=== PATIENT | male | born 1960 | race Caucasian/White ===

== ENCOUNTER → 2017-02-17 | Outpatient (CLI) | payer OTHER | END | disposition home or self-care (01) | LOC: C.CPL 18:07 | PROVIDERS: ATTEND Internal Medicine | DX: R07.9 Chest pain, unspecified (principal) ==

== ENCOUNTER 2017-10-09 12:30 | Emergency (ER) | payer OTHER ==
[~2017-10-09] VITALS: Ht 175.3 cm; Wt 77.0 kg
[2017-10-09] MEDS ORDERED: ONDANSETRON 4MG OD TAB ONE (12:42)
[2017-10-09] MEDS ORDERED: MECLIZINE HCL 25 MG TAB PO ONE (12:42)
[2017-10-09 12:50] VITALS: TEMP 36.7; Ht 175.3 cm; Wt 77.0 kg
[2017-10-09] MEDS ORDERED: SODIUM CHLORIDE 0.9% 1000ML 1,000 ML IV STA (13:04)
[2017-10-09] MEDS ORDERED: SODIUM CHLORIDE 0.9% 1000ML 1,000 ML IV ONE (13:04)
[2017-10-09] MEDS ORDERED: ONDANSETRON INJ 2 MG/ML 2 ML VIAL IV STA (13:24)
[2017-10-09] MEDS ORDERED: LORAZEPAM 2 MG/ML 1 ML VIAL IV STA (13:33)
--- NOTE | 2017-10-09 13:38 | EMERGENCY ROOM VISIT NOTE ---
History Report prepared by Rafa: Cristiane Orr Under the Supervision of: Dr. Ciro Dobson M.D. First contact with patient: 12:53 Chief Complaint: VERTIGO Stated Complaint: VERITGO NAUSEA History of Present Illness The patient is a 56 year old male who presents to the Emergency Room with complaints of persistent dizziness that began suddenly two hours ago. The patient states that he has a history of vertigo in the past 5-7 years ago. He states that he has been worked up, but notes that it was found to be idiopathic. The patient states that when he would experiencing an episode of vertigo he would lie down and wait for it to pass. He states that with his previous episodes he would feel nauseous, but states that today his nausea is much worse, and notes that he vomited several times. The patient states that his symptoms are worsened with movement. He states that his symptoms started with feeling lightheaded, and then noticed the room spinning sensation. The patient states that he then became hot, diaphoretic and clammy. He denies any chest pain, headache or ear ringing. The patient does report some esophageal discomfort after he vomited. He denies any recent illness or recent travel. The patient denies any trouble speaking or swallowing, numbness, or weakness. He denies any active medical problems. The patient states that his symptoms are about the same at this time. He denies any melena or hematochezia. Source of History: patient Onset: two hours ago Position: other (global) Quality: other (dizziness) Timing: other (persistent) Associated Symptoms: + diaphoresis, No headache, No chest pain, No weakness , No numbness Note: Associated Symptoms: lightheadedness, clammy, room spinning sensation Review of Systems See HPI for pertinent positives & negatives. A total of 10 systems reviewed and were otherwise negative. Past Medical & Surgical Medical Problems: (1) No Known Active Medical Problems Old medical records were reviewed. Nurse's notes were reviewed and I agree with. Social History Drug Use: none Marital Status: Housing Status: lives with significant other Current/Historical Medications No Active Prescriptions or Reported Meds Allergies Coded Allergies: No Known Allergies (Unverified , 10/09/17) Physical Exam Vital Signs Date Time Temp Pulse Resp B/P (MAP) Pulse Ox O2 Delivery O2 Flow Rate FiO2 10/09/17 15:53 63 20 125/81 100 Room Air 10/09/17 14:14 69 20 115/77 98 Room Air 10/09/17 12:50 36.7 62 20 119/75 96 Room Air 10/09/17 12:46 63 Physical Exam General: Uncomfortable appearing middle aged male resting with his eyes closed, dizzy with any movement. GCS 15. HEENT: Normal cephalic atraumatic. Pupils are equal round and reactive to light. Extraocular movements are intact. Oropharynx is pink with moist mucous membranes. No swelling of the mouth lips or tongue. Neck: Supple with a midline trachea. No meningeal signs or stiffness, no JVD or bruits. No Stridor. Chest: Clear to auscultation bilaterally. No wheezes or rhonchi. No increased work of breathing. Heart: regular rate and rhythm. Abdomen: Soft nontender, nondistended without rebound guarding or rigidity. Extremities: No cyanosis clubbing or edema. No calf tenderness or assymetry Spine/Back. Non tender to palpation. No CVA tenderness Skin: Good turgor without rashes. Neurologic exam: Cranial nerves two through 12 are intact. Motor and sensation are intact and symmetrical throughout. No tremor, heel to toe intact. Medical Decision & Procedures ER Provider Diagnostic Interpretation: Radiology results as stated below per my review and radiologist interpretation: HEAD WITHOUT CONTRAST (CT) CLINICAL HISTORY: 56 years-old Male with vertigo. Acute vertigo with dizziness and nausea TECHNIQUE: Multiple axial CT images of the head were obtained without contrast. A dose lowering technique was utilized adhering to the principles of ALARA. CT DOSE: 638.56 mGycm COMPARISON: None. FINDINGS: No acute intracranial hemorrhage, midline shift, mass, territorial ischemia or abnormal extra-axial collection. Note is made of a javi cisterna magna. There is mild asymmetric prominence of the right lateral ventricle compared to the left which is nonspecific and likely incidental. Focal areas of low attenuation in the left lentiform nuclei suggests prominent perivascular spaces with remote lacunar infarction thought to be less likely. The calvarium is intact. The mastoid air cells, and middle ear cavities are clear. There is mild mucosal thickening of the ethmoid air cells. Soft tissues and orbits are unremarkable. IMPRESSION: No acute intracranial abnormality. The above report was generated using voice recognition software. It may contain grammatical, syntax or spelling errors. Electronically signed by: Vladimir Bagley M.D. 10/09/2017 2:02 PM Dictated Date/Time: 10/09/2017 1:59 PM Laboratory Results 10/09/17 13:20 Red Blood Count 4.93, Mean Corpuscular Volume 86.6, Mean Corpuscular Hemoglobin 30.4, Mean Corpuscular Hemoglobin Concent 35.1, Mean Platelet Volume 11.0, Neutrophils (%) (Auto) 89.3, Lymphocytes (%) (Auto) 7.5, Monocytes (%) (Auto) 2.4, Eosinophils (%) (Auto) 0.3, Basophils (%) (Auto) 0.2, Neutrophils # (Auto) 10.49, Lymphocytes # (Auto) 0.88, Monocytes # (Auto) 0.28, Eosinophils # (Auto) 0.03, Basophils # (Auto) 0.02 10/09/17 13:20 Test 10/09/17 13:20 White Blood Count 11.73 K/uL (4.8-10.8) Red Blood Count 4.93 M/uL (4.7-6.1) Hemoglobin 15.0 g/dL (14.0-18.0) Hematocrit 42.7 % (42-52) Mean Corpuscular Volume 86.6 fL (80-100) Mean Corpuscular Hemoglobin 30.4 pg (25-34) Mean Corpuscular Hemoglobin Concent 35.1 g/dl (32-36) Platelet Count 133 K/uL (130-400) Mean Platelet Volume 11.0 fL (7.4-10.4) Neutrophils (%) (Auto) 89.3 % Lymphocytes (%) (Auto) 7.5 % Monocytes (%) (Auto) 2.4 % Eosinophils (%) (Auto) 0.3 % Basophils (%) (Auto) 0.2 % Neutrophils # (Auto) 10.49 K/uL (1.4-6.5) Lymphocytes # (Auto) 0.88 K/uL (1.2-3.4) Monocytes # (Auto) 0.28 K/uL (0.11-0.59) Eosinophils # (Auto) 0.03 K/uL (0-0.5) Basophils # (Auto) 0.02 K/uL (0-0.2) RDW Standard Deviation 41.4 fL (36.4-46.3) RDW Coefficient of Variation 12.9 % (11.5-14.5) Immature Granulocyte % (Auto) 0.3 % Immature Granulocyte # (Auto) 0.03 K/uL (0.00-0.02) Prothrombin Time 11.0 SECONDS (9.0-12.0) Prothromb Time International Ratio 1.0 (0.9-1.1) Activated Partial Thromboplast Time 22.5 SECONDS (21.0-31.0) Partial Thromboplastin Ratio 0.9 Anion Gap 11.0 mmol/L (3-11) Est Creatinine Clear Calc Drug Dose 80.1 ml/min Estimated GFR () 93.7 Estimated GFR (Non- 80.8 BUN/Creatinine Ratio 13.2 (10-20) Calcium Level 8.7 mg/dl (8.5-10.1) Total Bilirubin 0.7 mg/dl (0.2-1) Direct Bilirubin 0.2 mg/dl (0-0.2) Aspartate Amino Transf (AST/SGOT) 14 U/L (15-37) Alanine Aminotransferase (ALT/SGPT) 31 U/L (12-78) Alkaline Phosphatase 56 U/L (45-117) Total Protein 6.9 gm/dl (6.4-8.2) Albumin 3.8 gm/dl (3.4-5.0) Lipase 222 U/L (73-393) Laboratory studies as stated above per my review. Medications Administered Medications (Trade) Dose Ordered Sig/[place] Route Start Time Stop Time Status Last Admin Dose Admin Meclizine HCl (Antivert Tab) 25 mg STK-MED ONCE PO 10/09/17 12:42 10/09/17 12:43 DC 10/09/17 12:42 25 MG Ondansetron HCl (Zofran Odt) 4 mg STK-MED ONCE .ROUTE 10/09/17 12:42 10/09/17 12:43 DC 10/09/17 12:42 4 MG Sodium Chloride 1,000 ml @ 999 mls/hr Q1H1M STAT IV 10/09/17 13:04 10/09/17 14:04 DC 10/09/17 13:28 999 MLS/HR Sodium Chloride 1,000 ml @ 200 mls/hr Q5H ONCE IV 10/09/17 13:04 10/09/17 18:03 10/09/17 14:10 200 MLS/HR Ondansetron HCl (Zofran Inj) 4 mg NOW STAT IV 10/09/17 13:24 10/09/17 13:25 DC 10/09/17 13:32 4 MG Lorazepam (Ativan Inj) 0.5 mg NOW STAT IV 10/09/17 13:33 10/09/17 13:35 DC 10/09/17 13:40 0.5 MG ECG Indication: other (vertigo) Rate (beats per minute): 65 Rhythm: normal sinus Findings: no acute ischemic change, no ectopy Comparison ECG Date: 02/09/17 Change: no significant change ED Course 1242: Ordered Zofran Odt 4 mg .route, Antivert Tab 25 mg PO. 1253: Past medical records reviewed. The patient was evaluated in room C5, and a complete history and physical examination were performed. 1304: Ordered Sodium Chloride 1000 ml @ 200 mls/hr IV, Sodium Chloride 1000 ml @ 999 mls/hr IV. 1318: I reevaluated the patient and he is resting. 1324: Ordered Zofran Inj 4 mg IV. 1329: I discussed the patients case with Dr. Nowak, Neurology. He states that the patient should have a noncontrast MRI. 1335: I reevaluated the patient and he is resting. I updated him on the treatment plan. He is in agreement to have an MRI.1318: I reevaluated the patient and he is resting. 1329: I discussed the patients case with Dr. Nowak, Neurology. He states that the patient should have a noncontrast MRI. 1333: Ordered Ativan Inj 0.5 mg IV. 1335: I reevaluated the patient and he is resting. I updated him on the treatment plan. He is in agreement to have an MRI. 1417: I reevaluated the patient and he is feeling much better, he is sleeping and doing well. He will go over for his MRI. Medical Decision Differentials include, but are not limited to; vertigo, cardiac disease, electrolyte or metabolic abnormality, CVA. This patient comes in as described above. He had sudden onset of vertigo type symptoms where he felt likely spinning and vomiting. He has had this before but not as persistent he had a workup several years ago for this. He has no headache or recent illness or fever chills. No trauma. No numbness or weakness. He did receive Zofran and Antivert. He is no longer diaphoretic. IV access was established was hydrated with 2 L normal saline IV. He was given additional Zofran 4 mg IV as well as Ativan 0.5 mgs IV and this caused him to be little bit sleepy but he seemed be doing much better with this. CAT scan of his head is unremarkable. EKG does not suggest acute coronary syndrome or arrhythmia. His troponin is not elevated he has no acute electrode or metabolic abnormalities. I did discuss case with Dr. Nowak, the neurologist on- call call and he suggest we do an MRI without contrast. MRI shows no acute findings any feels much better. He has no acute electrolyte or metabolic abnormalities. He was able ambulate without difficulty. I discussed the case with the patient and his at length. He strongly desires to go home and thinks he is able to. I do not think is likely cardiac, his symptoms were definitely positional and with movement of his head and are very classic for peripheral vertigo. He strongly desires to go home and is doing much better. I will give him a Ativan home pack that he can use 0.5 mg every 6 hours if needed he was warned that this could make him drowsy and do not take before drinking, driving, working and return if: Worsening of symptoms, fever or chills , chest pain, any new problems or concerns. Medication Reconcilliation Current Medication List: was personally reviewed by me Consults Time Called: 1320 Consulting Physician: Dr. Nowak, Neurology Returned Call: [phone] I discussed the patients case with Dr. Nowak, Neurology. He states that the patient should have a noncontrast MRI. Impression Primary Impression: Peripheral vertigo Additional Impression: Dizziness Scribe Attestation The scribe's documentation has been prepared under my direction and personally reviewed by me in its entirety. I confirm that the note above accurately reflects all work, treatment, procedures, and medical decision making performed by me. Departure Information Prescriptions No Active Prescriptions or Reported Meds Referrals ,Jax Jamison M.D. (PCP) Patient Instructions My [facility] Problem Qualifiers
[2017-10-09 13:51] LABS: BASO % 0.2 %; BASO ABS # 0.02 K/uL (0-0.2); COMPLETE YES; EOS % 0.3 %; HEMATOCRIT 42.7 % (42-52); IG% 0.3 %; LYMPH % 7.5 %; LYMPH ABS # 0.88 K/uL (1.2-3.4); MEAN CELL VOLUME 86.6 fL (80-100); MEAN CORPUSCULAR HEMOGLOBIN 30.4 pg (25-34); MEAN CORPUSCULAR HGB CONC 35.1 g/dl (32-36); MONO % 2.4 %; NEUT % 89.3 %; PLATELET COUNT 133 K/uL (130-400); RED BLOOD COUNT 4.93 M/uL (4.7-6.1); WHITE BLOOD COUNT 11.73 K/uL (4.8-10.8)
[2017-10-09 14:03] LABS: PARTIAL THROMBOPLASTIN RATIO 0.9
--- NOTE | 2017-10-09 14:03 | DIAGNOSTIC IMAGING REPORT ---
HEAD WITHOUT CONTRAST (CT) CLINICAL HISTORY: 56 years-old Male with vertigo. Acute vertigo with dizziness and nausea TECHNIQUE: Multiple axial CT images of the head were obtained without contrast. A dose lowering technique was utilized adhering to the principles of ALARA. CT DOSE: 638.56 mGycm COMPARISON: None. FINDINGS: No acute intracranial hemorrhage, midline shift, mass, territorial ischemia or abnormal extra-axial collection. Note is made of a javi cisterna magna. There is mild asymmetric prominence of the right lateral ventricle compared to the left which is nonspecific and likely incidental. Focal areas of low attenuation in the left lentiform nuclei suggests prominent perivascular spaces with remote lacunar infarction thought to be less likely. The calvarium is intact. The mastoid air cells, and middle ear cavities are clear. There is mild mucosal thickening of the ethmoid air cells. Soft tissues and orbits are unremarkable. IMPRESSION: No acute intracranial abnormality. The above report was generated using voice recognition software. It may contain grammatical, syntax or spelling errors. Electronically signed by: Vladimir Bagley M.D. 10/09/2017 2:02 PM Dictated Date/Time: 10/09/2017 1:59 PM
[2017-10-09 14:12] LABS: BUN/CREATININE RATIO 13.2 (10-20); CALCIUM 8.7 mg/dl (8.5-10.1); CREATININE 1.03 mg/dl (0.60-1.40); POTASSIUM 3.5 mmol/L (3.5-5.1)
--- NOTE | 2017-10-09 15:14 | DIAGNOSTIC IMAGING REPORT ---
BRAIN WITHOUT CONTRAST HISTORY: 56 years-old Male eval for CVA acute strokelike symptoms. Patient presents with vertigo and nausea COMPARISON: CT head of same day TECHNIQUE: Multiplanar multisequence MRI the brain was obtained without contrast FINDINGS: There is no restricted diffusion to suggest acute ischemia. The midline structures including the corpus callosum, brainstem, optic chiasm, pituitary and pineal glands are unremarkable. No cerebellar tonsillar herniation. There is no acute intracranial hemorrhage, midline shift, abnormal extra-axial collections, hydrocephalus or intracranial mass. Several of the sequences are mildly motion degraded. Probable arachnoid cyst or alternatively a javi cisterna magna of the posterior fossa measures up to 5.0 x 2.1 cm nicely seen on image 6 of series 5 which is seen adjacent to the left cerebellar hemisphere and in the midline posteriorly. The major flow voids at the level the skull base are patent. Mild mucosal thickening of the inferior maxillary sinuses and ethmoid sinuses. Focal area of polypoid mucosal thickening is seen within the anterior left maxillary sinus. Mild left sphenoid sinus disease. Scalp and soft tissues are unremarkable. Orbits appear symmetric. IMPRESSION: 1. No acute intracranial abnormality. 2. Probable arachnoid cyst or alternatively a javi cisterna magna of the posterior fossa measures up to 5.0 x 2.1 cm. 3. Mild paranasal sinus disease. The above report was generated using voice recognition software. It may contain grammatical, syntax or spelling errors. Electronically signed by: Vladimir Bagley M.D. 10/09/2017 3:12 PM Dictated Date/Time: 10/09/2017 3:07 PM
[2017-10-09] MEDS ORDERED: ATIVAN 1MG HOMEPACK PO ONE (16:15)
[2017-10-09] MEDS ORDERED: MECLIZINE HCL 25MG HOME PACK PO ONE (16:30)
[2017-10-09 16:32] VITALS: BP 125/81; PULSE 69; O2SAT 100
== END 2017-10-09 16:34 | disposition home or self-care (01) ==
LOC: C.EDC 12:34
DX: H81.399 Other peripheral vertigo, unspecified ear (principal)

== ENCOUNTER → 2017-10-14 | Outpatient (CLI) | payer OTHER ==
[2017-10-14 11:17] LABS: ESTIMATED AVERAGE GLUCOSE 117 mg/dl; HA1C FLAG Normal (Normal)
[2017-10-14 11:33] LABS: BLOOD UREA NITROGEN 15 mg/dl (7-18); BUN/CREATININE RATIO 13.4 (10-20); CALCIUM 8.7 mg/dl (8.5-10.1); CARBON DIOXIDE 27 mmol/L (21-32); CHLORIDE 104 mmol/L (98-107); CREATININE 1.13 mg/dl (0.60-1.40); GLUCOSE 113 mg/dl (70-99); SODIUM 139 mmol/L (136-145)
[2017-10-14 11:38] LABS: CHOLESTEROL 181 mg/dl (0-200); CHOLESTEROL/HDL RATIO 3.8; HDL CHOLESTEROL 48 mg/dl; LDL CHOLESTEROL CALCULATED 113 mg/dl; PROSTATE SPECIFIC ANTIGEN 0.618 ng/ml (0.000-4.000); TRIGLYCERIDES 101 mg/dl (0-150); VERY LOW DENSITY LIPOPROT CALC 20 mg/dl
== END | disposition home or self-care (01) ==
LOC: C.LABBC 07:47
PROVIDERS: ATTEND Internal Medicine
DX: R73.9 Hyperglycemia, unspecified (principal); Z13.220 Encounter for screening for lipoid disorders; Z12.5 Encounter for screening for malignant neoplasm of prostate